=== PATIENT | male | born 1995 | race African-American/Black ===

== ENCOUNTER 2016-10-24 21:40 | Inpatient (IN) | payer MEDICAID ==
[~2016-10-24] VITALS: Ht 172.7 cm; Wt 74.7 kg
[2016-10-24 22:15] LABS: BASOPHILS # (AUTO) 0.04 K/uL (0.00-0.20); BASOPHILS % (AUTO) 0.9 % (0.0-2.0); EOSINOPHILS # (AUTO) 0.03 K/uL (0.00-0.70); EOSINOPHILS % (AUTO) 0.73 % (1.0-6.0); HEMATOCRIT 43.5 % (41-53); HEMOGLOBIN 14.4 g/dL (13.5-17.5); LYMPHOCYTES # (AUTO) 1.2 K/uL (1.0-4.8); LYMPHOCYTES % (AUTO) 27.8 % (22.0-44.0); MEAN CORPUSCULAR HEMOGLOBIN 29.7 pg (26.0-34.0); MEAN CORPUSCULAR HGB CONC 33.1 G/dL (31.0-37.0); MEAN CORPUSCULAR VOLUME 90 fL (80-100); MONOCYTES # (AUTO) 0.3 K/uL (0.1-1.0); MONOCYTES % (AUTO) 6.3 % (2.0-9.0); NEUTROPHILS # (AUTO) 2.7 K/uL (1.8-7.7); NEUTROPHILS % (AUTO) 64.3 % (40.0-70.0); PLATELET COUNT (AUTO) 190 K/uL (150-450); RED BLOOD CELL COUNT(AUTO) 4.84 MIL/uL (4.50-5.90); RED CELL DISTRIBUTION WIDTH 12.5 % (11.5-14.5); WHITE BLOOD COUNT (AUTO) 4.2 K/uL (4.5-11.0)
[2016-10-24 22:24] LABS: ANION GAP 14 mmol/L (8-16); CALCIUM, TOTAL 8.6 mg/dL (8.8-10.5); CARBON DIOXIDE 26 mmol/L (22-29); CHLORIDE 105 mmol/L (98-107); CREATININE 1.24 mg/dL (0.60-1.30); GLOMERULAR FILTR. RATE CALC > 60 mL/min (>60); POTASSIUM 3.7 mmol/L (3.5-5.1); SODIUM SERUM 145 mmol/L (136-145); UREA NITROGEN, BLOOD 12 mg/dL (7-18)
[2016-10-24 22:30] LABS: ALANINE AMINOTRANSFERASE 26 U/L (12-78); ALBUMIN 4.3 g/dL (3.4-5.0); ASPARTATE AMINOTRANSFERASE 20 U/L (15-37); BILIRUBIN,TOTAL 1.5 mg/dL (0.1-1.0); TOTAL PROTEIN, SERUM 7.9 g/dL (6.4-8.2)
[2016-10-24 22:44] LABS: RBC MORPHOLOGY COMMENT NORMAL RBC MORPH
[2016-10-25] MEDS ORDERED: HALOPERIDOL 5 MG TABLET PO PRN
[2016-10-25] MEDS ORDERED: INFLUENZA VIRUS VACCINE QVS 2016-17 (3YR+)/PF 60 MCG/0.5 ML SYRINGE IM ONE (03:30)
[2016-10-25 03:49] VITALS: BP 120/88
[2016-10-25 08:03] VITALS: BP 122/87
[2016-10-25] MEDS ORDERED: LOPERAMIDE HCL 2 MG CAPSULE PO PRN (09:45)
[2016-10-25] MEDS ORDERED: ONDANSETRON HCL 4 MG TABLET PO PRN (09:45)
[2016-10-25] MEDS ORDERED: MAG HYDROX/AL HYDROX/SIMETH ES 30 ML SUSPENSION UDCUP PO PRN (09:45)
[2016-10-25] MEDS ORDERED: ACETAMINOPHEN 325 MG TABLET PO PRN (09:45)
[2016-10-25] MEDS ORDERED: ALBUTEROL SULFATE HFA 90 MCG/PUFF 8 GM INHALER IH PRN (09:45)
[2016-10-25] MEDS ORDERED: MAGNESIUM HYDROXIDE SUSPENSION 30 ML UDCUP PO PRN (09:45)
[2016-10-25] MEDS ORDERED: BACITRACIN 28.4 GM OINTMENT TP PRN (09:45)
[2016-10-25] MEDS ORDERED: CloNIDine HCL 0.1 MG TABLET PO PRN (09:45)
[2016-10-25] MEDS ORDERED: IBUPROFEN 600 MG TABLET PO PRN (09:45)
[2016-10-25] MEDS ORDERED: BENZOCAINE/MENTHOL LOZENGE MM PRN (09:45)
[2016-10-25] MEDS ORDERED: PETROLATUM,WHITE 71 GM JELLY TP PRN (09:45)
[2016-10-25] MEDS: SERTRALINE HCL 50 MG TABLET PO SCH (12:18)
[2016-10-25 16:29] VITALS: BP 120/64
[2016-10-25] MEDS: ZOLPIDEM TARTRATE 10 MG TABLET PO PRN (20:17)
[2016-10-26 00:03] VITALS: BP 117/70
[2016-10-26 08:03] VITALS: BP 115/70
[2016-10-26] MEDS: NICOTINE 21 MG/24 HOUR PATCH TD SCH (09:12)
[2016-10-26] MEDS: SERTRALINE HCL 50 MG TABLET PO SCH (09:12)
[2016-10-26 16:00] VITALS: BP 123/67
[2016-10-26] MEDS: ZOLPIDEM TARTRATE 10 MG TABLET PO PRN (20:35)
[2016-10-27 00:08] VITALS: BP 116/63
[2016-10-27 08:33] VITALS: BP 129/75
[2016-10-27] MEDS: SERTRALINE HCL 50 MG TABLET PO SCH (08:34)
[2016-10-27] MEDS: NICOTINE 21 MG/24 HOUR PATCH TD SCH (08:34)
[2016-10-27] MEDS: LORazepam 2 MG TABLET PO PRN ×3 (09:40→21:23)
[2016-10-27 16:16] VITALS: BP 116/73
[2016-10-27] MEDS: ZOLPIDEM TARTRATE 10 MG TABLET PO PRN (20:57)
[2016-10-28 00:56] VITALS: BP 108/60
[2016-10-28 08:36] LABS: CHOL/HDL RATIO 2.3 (4.2-7.3); THYROID STIMULATING HORMONE 0.56 uIU/mL (0.36-3.74)
[2016-10-28] MEDS: SERTRALINE HCL 50 MG TABLET PO SCH (08:48)
[2016-10-28] MEDS: NICOTINE 21 MG/24 HOUR PATCH TD SCH (08:53)
[2016-10-28] MEDS: LORazepam 2 MG TABLET PO PRN ×3 (10:38→21:43)
[2016-10-28 16:09] VITALS: BP 124/75
[2016-10-28] MEDS: ZOLPIDEM TARTRATE 10 MG TABLET PO PRN (20:22)
[2016-10-29 00:03] VITALS: BP 136/65
[2016-10-29] MEDS: SERTRALINE HCL 50 MG TABLET PO SCH (08:51)
[2016-10-29 08:56] VITALS: BP 125/63
[2016-10-29] MEDS: LORazepam 2 MG TABLET PO PRN (14:08)
[2016-10-29] MEDS ORDERED: SERT50TA12 PO (14:34)
== END 2016-10-29 15:25 | disposition home or self-care (01) | DRG 751 ==
LOC: EMS 21:41 → B2S 23:45
PROVIDERS: ADMIT Psychiatry & Neurology Child & Adolescent Psychiatry; ATTEND Psychiatry & Neurology Child & Adolescent Psychiatry
DX: F33.2 Major depressive disorder, recurrent severe without psychotic features (principal); R45.851 Suicidal ideations; E83.51 Hypocalcemia; F20.9 Schizophrenia, unspecified; F10.229 Alcohol dependence with intoxication, unspecified; F17.210 Nicotine dependence, cigarettes, uncomplicated; Z79.899 Other long term (current) drug therapy
CPT/HCPCS: 82306; 84443; 90471; 99285; G0480